=== PATIENT | female | born 1975 | race Caucasian/White ===

== ENCOUNTER → 2023-11-17 09:57 | Outpatient (REF) | payer OTHER, SELFPAY | LOC: WDC 09:57 | PROVIDERS: ATTENDING PHYSICIAN Nurse Practitioner | DX: R92.2 Inconclusive mammogram (principal) | CPT/HCPCS: 76641 ==

== ENCOUNTER 2024-02-03 13:34 | Emergency (ER) | payer OTHER, MEDICARE, SELFPAY ==
[2024-02-03 13:36] VITALS: BP 155/108
[2024-02-03 13:57] LABS: % Basophils 0.8 % (0-2); % Eosinophils 3.8 % (0-6); % Immature Granulocytes 0.5 % (0-0.5); % Lymphocytes 20.9 % (20.5-51.1); % Monocytes 6.4 % (1.7-9.3); % Neutrophils 67.6 % (42.2-75.2); Absolute Basophils 0.1 10^3/uL (0-0.2); Absolute Eosinophils 0.4 10^3/uL (0-0.7); Absolute Immature Granulocytes 0.1 10^3/uL (0-0.05); Absolute Lymphocytes 1.9 10^3/uL (1.2-3.4); Absolute Monocytes 0.6 10^3/uL (0.1-0.6); Absolute Neutrophils 6.3 10^3/uL (1.4-6.5); Hematocrit 37.7 % (37.0-47.0); Mean Corp Hgb Conc. 34.5 g/dL (33.0-37.0); Mean Corpuscular Hgb 30.4 pg (27.0-31.0); Mean Corpuscular Volume 88.3 fL (81.0-99.0); Mean Platelet Volume 9.6 fL (7.4-10.4); Nucleated Red Blood Cells % 0 %; Platelet Count 313 10^3/uL (130-400); Red Blood Cell Count 4.27 10^6/uL (4.20-5.40); Red Cell Dist. Width 13.3 % (11.5-14.5); White Blood Cell Count 9.3 10^3/uL (4.8-10.8)
[2024-02-03 14:01] LABS: Urine Albumin Trace (Neg - Trace); Urine Bilirubin Negative (Negative); Urine Character Slightly Cloudy (Clear); Urine Color Yellow; Urine Glucose Negative (Negative); Urine Ketone Negative (Negative); Urine Leukocyte Trace (Negative); Urine Nitrite Negative (Negative); Urine Occult Blood 4+ (Negative); Urine Urobilinogen Negative (Neg - 1+)
[2024-02-03 14:15] LABS: HCG, Serum Qualitative Screen Negative
[2024-02-03 14:16] LABS: ALT (SGPT) 17 U/L (0-35); AST (SGOT) 23 U/L (14-36); Albumin 4.3 g/dl (3.5-5.0); Alkaline Phosphatase 63 U/L (38-126); Blood Urea Nitrogen 20 mg/dl (7-17); Calcium 9.3 mg/dl (8.4-10.2); Carbon Dioxide 29 mmol/L (22-30); Chloride 103 mmol/L (98-107); Glucose 98 mg/dl (70-99); Lipase 108 U/L (23-300); Potassium 4.2 mmol/L (3.5-5.1); Sodium 135 mmol/L (135-145); Total Bilirubin 0.4 mg/dl (0.2-1.3); Total Protein 7.2 g/dl (6.3-8.2); eGFR > 60.00
[2024-02-03 15:09] LABS: Urine White Cell 0-2 /HPF (0-5)
--- NOTE | 2024-02-03 18:02 | ED.GENMED ---
History of Present Illness
General
Chief Complaint: Abdominal Pain
Source: patient
Exam Limitations: none
Time Seen by Provider: 02/03/24 17:28
Nursing documentation reviewed up to this point in time: agreed with
Travel History
Have you had any contact with someone who has COVID-19?: No
Do you have any symptoms of coronavirus? Fever > 100 degrees, chills, cough, shortness of breath, sore throat, loss of taste or smell, muscle aches, or headache?: No
History of Present Illness
History of Present Illness:
48 yr. old female presents to the ER complaining of diffuse abdominal pain. Patient reports her period started 2 days ago and she has had intense abdominal pain. She has had the same type of pain recently for the past several months with the start
of her period. at times she feels it radiating to her back. She she feels extreme pain at times it is intermittent but when it comes it feels like childbirth. She denies any fevers nausea vomiting. She denies any urinary frequency urgency or
dysuria. She has had issues with constipation when she gets up. And she does feel constipated but she did have very small bowel movement 10 hours ago after using a laxative. She does report has a history of endometriosis and ovarian cysts and
prior to her ORTHOPEDIC ASSISTANT leaving she was going to be scheduled for hysterectomy.
She is followed by GI here at [facility] for benign esophageal mass.
Past History
Past History
ED Past Medical History: Asthma, GERD, HTN, Psychiatric (Anxiety), Other (Factor V Leiden. PFO, 'hemiplegic migraine') and Other (Hemiplegic migraines)
ED Past Surgical History: Appendectomy, Cardiac (PFO closure) and Other (Partial thyroidectomy)
Social History
Tobacco: Non-smoker
Alcohol: None
Drug: None
Personal:
Living: with family
Employment: Disabled
Family History
Family History: Other (No significant)
Review of Systems
Review of Systems
Allergies reviewed?: Yes
All Other Systems: ROS reviewed and negative except as documented in HPI and ROS
Constitutional: Reports no symptoms; Denies fever, fatigue or chills
EENT: Reports no symptoms
Respiratory: Reports no symptoms
Cardiac: Reports no symptoms
ABD/GI: Reports abdominal pain
: Reports no symptoms; Denies flank pain, urgency or discharge
Musculoskeletal: Reports no symptoms
Skin: Reports no symptoms
Neurological: Reports no symptoms
Psychiatric: Reports no symptoms
Phy Exam
General Physical Exam
General Presentation: well appearing
General age: appears stated age
General Skin: warm and dry
General Habitus: normal
General Mental: alert
Gastrointestinal Exam
Gastrointestinal Exam: soft and other (Diffuse abdominal tenderness worse on the left side)
Neurological Exam
Neurological Exam: alert and oriented x3
Parag Coma Scale
Eye Opening: Spontaneous
Verbal Response: Oriented
Motor Response: Obeys Commands
GCS Total Score: 15
Musculoskeletal Exam
Musculoskeletal Exam: full ROM
Skin Exam
Skin Exam: normal color
Psychiatric Exam
Psychiatric Exam: normal mood/affect
Course
Orders/Labs/Results
Orders:
Orders
02/03/24 13:40
Test Result ONCE
02/03/24 13:45
Complete Blood Count/With Diff Urgent
Comprehensive Metabolic Panel Urgent
HCG, Serum Qualitative Screen Urgent
Lipase Urgent
Urinalysis Reflex To Culture Urgent
Date Specimen was Collected: 02/03/24
Time Specimen was Collected: 13:44
Urine Microscopic Reflex Cult Urgent
02/03/24 17:59
0.9% Sodium Chloride 1000 ml [Nss] 1,000 ml IV BOLUS
02/03/24 18:00
CT Abd/Pel (IV only)-DH only Urgent
Comment:
Reason For Exam: diffuse abdomina pain
US Pelvis Only (non-obstetric) Urgent
Comment:
Reason For Exam: lower abd pain llq worse
02/03/24 18:05
Diphenhydramine [Benadryl] 50 mg IV NOW STA
Hydrocortisone Sod Succinate [Solu-Cortef] 200 mg IV NOW STA
Abnormal Lab Results
02/03/24
13:45
Abs Immat Gran (auto) 0.1 H 10^3/uL
(0-0.05)
BUN 20 H mg/dl
(7-17)
Ur Occult Blood Reflex 4+ A
(Negative)
Leukocyte Esterase Rfl Trace A
(Negative)
Urine RBC 3-6 A /HPF
(0-2)
02/03/24 13:45
02/03/24 13:45
Vital Signs
Initial and Last Documented VS:
Initial Vital Signs
Temp Pulse Resp BP Pulse Ox
98.0 F 79 18 155/108 98
02/03/24 13:36 02/03/24 13:36 02/03/24 13:36 02/03/24 13:36 02/03/24 13:36
Last Documented Vital Signs
Temp Pulse Resp BP Pulse Ox
98.0 F 96 18 178/112 100
02/03/24 13:36 02/03/24 18:19 02/03/24 18:19 02/03/24 18:19 02/03/24 18:19
MDM/Problems Addressed
Differential Diagnosis Includes:
not limited to: Ovarian cyst, less likely torsion, diverticulitis ,bowel obstruction
MDM/Problems Addressed:
Patient female who presented to the ER for evaluation abdominal pain started 2 days ago with her. She noted that she has had increasing pain with every menstrual period she has a history of endometriosis.. pain is diffuse tender throughout . She
does not complain of some constipation though she did move her bowels several hours ago. She denies any recent fevers and is afebrile here. Though she complained of being uncomfortable she did not want anything for pain. She declined pain
medication. She denies any fevers is afebrile here with a normal white count stable hemoglobin unremarkable chemistries. Patient has her menses currently there is 3�6 RBCs but no evidence of infection. Ultrasound of the pelvis shows chronic 7 mm
fluid distended endometrial canal. 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 She also had a CAT scan here which was negative for obstructive uropathy there is
diverticulosis with no diverticulitis there is tethered small bowel loops in the right lower quadrant associated mild soft tissue stranding suggesting adhesion.
Case reviewed with ED physician who viewed CT scan
patient does have GI specialist Dr. Espitia . Will notify GI commercial front load driver for patient to follow-up with GI for tethering of small bowel loops with adhesion, she has been constipated patient started to use MiraLAX. Patient does have a new appointment
with a new insurance verifier in the next several weeks discussed to call tomorrow for possible earlier appointment. Discussed with patient the importance of taking MiraLAX for constipation and Motrin also for pain. She does want to go home.
Chronic conditions affecting care:
Endometriosis
*Radiology
Radiology exam reviewed: radiology read reviewed
*Pulse Oximetry
Patient hypoxic: no
*Critical Care Note
Total Time (30-74mins, 75-104mins- exclusive of procedures): Not Applicable
ED Attending Note
-
Portions of this chart may have been created with voice recognition software.� Occasional wrong word or��sound alike� substitutions may have occurred due to the inherent limitations of voice recognition software.
Discharge Plan
Departure
Patient Disposition: Home (Routine Discharge)
Date of Disposition: 02/03/24
Time of Disposition: 21:37
Patient with high blood pressure during this ER visit?: Yes
Condition: Fair
Covid-19: Not Applicable
Discharge Problem:
Abdominal pain
Instructions: Abdominal Pain
Prescriptions:
No Action
alprazolam 0.5 MG tablet
0.5 mg PO HSPRN PRN (Reason: sleep, anxiety)
albuterol sulfate 1 PUFF HFA aerosol inhaler
2 puff inhalation R Q4HPRN PRN (Reason: sob)
budesonide-formoterol [Symbicort] 1 PUFF HFA aerosol inhaler
2 puff inhalation R BID
buspirone 10 mg Tablet
10 mg PO 0800,1200
verapamil 240 mg Tablet Extended Release
240 mg PO NOON
losartan 100 mg Tablet
100 mg PO DAILY
doxazosin [Cardura] 2 mg Tablet
2 mg PO HS
omeprazole 40 mg Capsule,Delayed Release(Dr/Ec)
40 mg PO BID
calcium carbonate 500 mg calcium (1,250 mg) Tablet,Chewable
500 mg PO Q4HPRN PRN (Reason: indigestion)
pseudoephedrine HCl [Suphedrine] 30 mg tablet
30 mg PO Q6H PRN (Reason: nasal congestion) Qty: 30 0RF
methylprednisolone [Medrol (Kong)] 4 mg tablets,dose pack
4 mg PO DIRECTED Qty: 21 0RF
diazepam [Valium] 5 mg tablet
5 mg PO HS PRN (Reason: muscle spasm) Qty: 6 0RF
Referrals:
Brooke Thompson CRNP [Family Provider] -
Yessenia Espitia DO [Active] -
Activity Restrictions/Additional Instructions:
As discussed for constipation try MiraLAX every day increase fiber in your diet fresh fruits and vegetables high-fiber cereals avoiding constipating foods such as bananas. Increase your water intake.
Ibuprofen as needed every 8 hours for abdominal discomfort.
call your insurance verifier tomorrow for an earlier appointment if possible.
return if any worsening of symptoms
. Also as discussed follow-up with GI for further evaluation of your symptoms and your CT findings.
Interventions
Interventions:
*Risk Screen - Suicide Last Done: 02/03/24 18:22
*Neglect/Abuse Screening Last Done: 02/03/24 18:21
*ED COVID-19 Vaccine History Last Done: 02/03/24 13:36
RM-Inbqyf-Cdnwfzezao Assessment Last Done: 02/03/24 18:22
Discharge Date and Time
Print Language: HONDURAN
[2024-02-03] MEDS: SOLU-CORTEF 200 MG IV (18:09)
[2024-02-03] MEDS: BENADRYL 50 MG IV (18:10)
[2024-02-03] MEDS: NSS 1000 IV (18:12)
[2024-02-03 18:18] VITALS: BMI 36.3
[2024-02-03 18:19] VITALS: BP 178/112
[2024-02-03 21:23] VITALS: BP 151/95
== END 2024-02-03 22:24 | disposition home or self-care (01) ==
LOC: EMR 13:34
PROVIDERS: Emergency Medicine; EMERGENCY PHYSICIAN Emergency Medicine; FAMILY PHYSICIAN Nurse Practitioner
DX: R10.9 Unspecified abdominal pain (principal); I10 Essential (primary) hypertension
CPT/HCPCS: 99285; 96374; 96375; 96361; 74177; 76856; 80053; 81003; 81015; 83690; 84703; 85025; Q9967

== ENCOUNTER → 2024-03-24 17:00 | Outpatient (REF) | payer OTHER, SELFPAY | LOC: MRI 3T 17:00 | PROVIDERS: ATTENDING PHYSICIAN Specialist; FAMILY PHYSICIAN Nurse Practitioner | DX: N80.9 Endometriosis, unspecified (principal); R10.2 Pelvic and perineal pain; Z98.890 Other specified postprocedural states; Z01.818 Encounter for other preprocedural examination; N83.8 Other noninflammatory disorders of ovary, fallopian tube and broad ligament | CPT/HCPCS: 72195 ==

== ENCOUNTER 2025-01-15 06:26 | Day surgery (SDC) | payer OTHER, SELFPAY | END 2025-01-15 14:11 | disposition home or self-care (01) | LOC: GI 06:26 | PROVIDERS: ATTENDING PHYSICIAN Internal Medicine | DX: Z12.11 Encounter for screening for malignant neoplasm of colon (principal); K57.30 Diverticulosis of large intestine without perforation or abscess without bleeding; K62.89 Other specified diseases of anus and rectum; K64.4 Residual hemorrhoidal skin tags; R13.10 Dysphagia, unspecified; Z86.0100 Personal history of colon polyps, unspecified; Z98.890 Other specified postprocedural states; Z87.19 Personal history of other diseases of the digestive system; K22.89 Other specified disease of esophagus; K44.9 Diaphragmatic hernia without obstruction or gangrene; K31.89 Other diseases of stomach and duodenum | CPT/HCPCS: 43239; G0105; 88305; 88342 ==

== ENCOUNTER → 2025-08-22 10:28 | Outpatient (REF) | payer OTHER, SELFPAY | LOC: RAD 10:28 | PROVIDERS: ATTENDING PHYSICIAN Podiatrist Foot & Ankle Surgery; FAMILY PHYSICIAN Internal Medicine | DX: I82.402 Acute embolism and thrombosis of unspecified deep veins of left lower extremity (principal) | CPT/HCPCS: 93971 ==